=== PATIENT | male | born 1945 | race Caucasian/White ===

== ENCOUNTER → 2016-08-31 | Outpatient (CLI) | payer OTHER ==
[~2016-08-31] MED LIST: ALEV220T26 PO; ASPI1TAB PO; LOSA50TA20 PO; OSTETAB7 PO; VITA400D3 PO
[2016-08-31 11:39] LABS: MEAN CORPUSCULAR HEMOGLOBIN 31.6 pg (27.0-33.0); MEAN CORPUSCULAR HGB CONC 33.3 g/dl (32.0-36.5); MEAN CORPUSCULAR VOLUME 94.8 fl (80.0-96.0); RED CELL DISTRIBUTION WIDTH 12.7 % (11.5-14.5); WHITE BLOOD COUNT 3.9 K/mm3 (4.0-10.0)
[2016-08-31 11:44] LABS: INR 1.03
[2016-08-31 12:14] LABS: ALBUMIN 3.7 GM/DL (3.2-5.2); ALBUMIN/GLOBULIN RATIO 1.23 (1.00-1.93); ALKALINE PHOSPHATASE 84 U/L (45-117); ALT/SGPT 21 U/L (12-78); ANION GAP 6 MEQ/L (8-16); AST/SGOT 28 U/L (15-37); BILIRUBIN,TOTAL 0.4 MG/DL (0.2-1.0); BLOOD UREA NITROGEN 18 MG/DL (7-18); CALCIUM LEVEL 8.6 MG/DL (8.8-10.2); CARBON DIOXIDE LEVEL 31 MEQ/L (21-32); CHLORIDE LEVEL 104 MEQ/L (98-107); CREATININE FOR GFR 1.02 MG/DL (0.70-1.30); GLOMERULAR FILTRATION RATE > 60.0 (>42); GLUCOSE, FASTING 99 MG/DL (83-110); POTASSIUM SERUM 4.3 MEQ/L (3.5-5.1); SODIUM LEVEL 141 MEQ/L (136-145); TOTAL PROTEIN 6.7 GM/DL (6.4-8.2)
--- NOTE | 2016-08-31 13:37 | ECGEPIP ---
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
--- NOTE | 2016-09-01 03:10 | REP ---
Clinical: Preoperative assessment. Technique: PA and lateral. Comparison: None. Findings: Mediastinum and cardiac silhouette are within normal limits. Lung stevens demonstrate chronic-appearing changes without focal consolidation, effusion, or pneumothorax. Skeletal structures intact and normal for age. Impression: No obvious acute cardiopulmonary process. Signed by Jerel Walter MD 09/01/2016 03:01 A
== END ==
LOC: M ADMPAT 10:16
PROVIDERS: ATTEND Orthopaedic Surgery
DX: Z01.818 Encounter for other preprocedural examination (principal); M17.12 Unilateral primary osteoarthritis, left knee; Z79.899 Other long term (current) drug therapy; Z79.01 Long term (current) use of anticoagulants

== ENCOUNTER 2016-09-14 05:37 | Inpatient (IN) | payer OTHER ==
[2016-08-31 11:13] VITALS: BP 126/70
--- NOTE | 2016-09-10 13:36 | HPE ---
DATE OF ADMISSION: 09/14/2016 HISTORY OF PRESENT ILLNESS: This is a pleasant male with continuing symptomatic left knee osteoarthritis related to work injury dating back to 12/17/2011. He has consented for left total knee arthroplasty per Dr. Cj Rob. Medical optimization per Rama Reeder. X-rays are consistent with advanced osteoarthritis. ALLERGIES: None known to medications. CURRENT MEDICATIONS: List includes: - losartan 50 mg once a day - Hubert low dose 81 mg once daily, [id number] - vitamin D liquid concentrate ten drops weekly - Naproxen sodium 220 mg [id number]-[id number] as needed - Osteo-BiFlex joint health [id number]-igl-nmbqptc once daily He has already stopped taking Hubert and naproxen as coached. Medical problem list includes symptomatic left knee osteoarthritis and hypertension. PAST SURGICAL HISTORY: Hernia times two. FAMILY HISTORY: Positive for arthritis, cancer. SOCIAL HISTORY: He has never smoked. Rare ethanol intake. Denies illicit drugs. REVIEW OF SYSTEMS: Denies chest pain, shortness of breath, dyspnea exertion, fever, chills, malaise , upper respiratory or urinary tract symptoms. PHYSICAL EXAMINATION: Height is 65 inches, weight 148, temperature 98.5, blood pressure 130/80, pulse 64, respiration 11. He is a pleasant, well-developed, well-nourished male in no acute distress. Alert and oriented times three. Mood and affect are appropriate. He is ambulating with favoring of his right lower extremity, antalgia about the left. Left knee varus. Osteoarthritic line with positive medial joint line tenderness. Crepitance is noted about the patellofemoral joint. PFT is otherwise concentric and dynamic. He is stable in the collateral ligaments, patellar and quad tendons without palpable defects. Can do a straight leg raise. There is no popliteal fossa mass or pain. No evidence of deep vein thrombosis (DVT) or compartment syndrome. Bowel sounds times four, soft, nontender. Chest rises symmetrically. Lungs clear to auscultation. Neck is supple. Negative jugular venous distention (JVD) or bruits. Normocephalic. Labs were reviewed and within normal limits. Chest x-ray result read by Dr. Walter showed no obvious acute cardiopulmonary process, date of exam 09/10/2016 via [facility]. I do not have access to EKG today. IMPRESSION: 1. Symptomatic left knee osteoarthritis. 2. The patient has consented for a left total knee arthroplasty per Dr. Cj Rob. 3. Medical optimization per Dr. Rama Reeder. 4. On-call operating room, 1 gram of IV Kefzol in OR. 5. Sequential compression device (SCD) in OR. MTDD
[~2016-09-14] VITALS: Ht 170.2 cm; Wt 71.2 kg
[2016-09-14] MEDS ORDERED: ACETAMINOPHEN 500 MG TAB PO ONE (05:45)
[2016-09-14] MEDS ORDERED: LR 1,000 ML IV SCH ×2 (05:45→11:15)
[2016-09-14] MEDS ORDERED: COUM1TAB17 PO (06:33)
[2016-09-14] MEDS ORDERED: fentaNYL 100 MCG/2 ML INJECTION (J3010) As Ordered ONE ×3 (06:52→07:12)
[2016-09-14] MEDS ORDERED: MIDAZOLAM INJ 2 MG/2 ML VIAL (J2250) As Ordered ONE ×2 (06:52→06:57)
[2016-09-14] MEDS ORDERED: LIDOCAINE 2% INJ 100 MG/5 ML SDV (FOR ANES.) As Ordered ONE (06:57)
[2016-09-14] MEDS ORDERED: PROPOFOL 200 MG/20 ML VIAL As Ordered ONE (06:57)
[2016-09-14] MEDS ORDERED: ROPIvacaine 0.5% 30 ML INJECTION (J2795) As Ordered ONE (07:11)
[2016-09-14] MEDS ORDERED: TRANEXAMIC ACID 100 MG/ML 10ML VIAL As Ordered ONE (07:12)
[2016-09-14] MEDS ORDERED: BUPIVACAINE HCL 0.5% 10 ML VIAL As Ordered ONE (07:12)
[2016-09-14] MEDS ORDERED: ceFAZolin 1GM INJ (J0690) As Ordered ONE (07:12)
[2016-09-14] MEDS ORDERED: EPINEPHrine INJ 1 MG/ML 1ML VIAL/AMP As Ordered ONE (07:13)
[2016-09-14] MEDS ORDERED: fentaNYL 100 MCG/2 ML INJECTION (J3010) IV ONE (07:45)
[2016-09-14] MEDS ORDERED: MIDAZOLAM INJ 5 MG/ML VIAL (J2250) IV ONE (07:45)
[2016-09-14] MEDS ORDERED: EPINEPHrine INJ 1 MG/ML 1ML VIAL/AMP XX ONE (08:11)
[2016-09-14] MEDS ORDERED: ROPIvacaine 0.5% 30 ML INJECTION (J2795) XX ONE (08:11)
[2016-09-14] MEDS ORDERED: ceFAZolin 1GM INJ (J0690) IR ONE (08:11)
[2016-09-14] MEDS ORDERED: BUPIVACAINE HCL 0.5% 10 ML VIAL XX ONE (08:11)
[2016-09-14] MEDS ORDERED: fentaNYL 100 MCG/2 ML INJECTION (J3010) XX ONE (08:11)
[2016-09-14] MEDS ORDERED: TRANEXAMIC ACID 100 MG/ML 10ML VIAL XX ONE (08:11)
[2016-09-14] MEDS ORDERED: ONDANSETRON 4MG/2ML VIAL (J2405) As Ordered ONE (09:15)
[2016-09-14] MEDS ORDERED: MORPHINE PCA 1MG/ML 100ML CADD As Ordered ONE (10:07)
--- NOTE | 2016-09-14 10:24 | CR ---
DATE OF CONSULTATION: 09/14/2016 PRIMARY CARE PROVIDER: Rama Reeder DO ORTHOPEDIC SURGEON: Kassi Rob MD REFERRING PHYSICIAN: Kassi Rob MD REASON FOR CONSULTATION: Medical management. HISTORY OF PRESENT ILLNESS: This patient is a 70-year-old male with a past medical history significant for osteoarthritis, mitral valve prolapse with regurgitation, and hypertension, presented to [facility] on 09/14/2016, for left total knee replacement by Dr. Rob. Patient's left knee has been having progressively worsening symptoms due to chronic osteoarthritis. Patient tolerated the procedure well, no complications, and hospitalist team was called for admission. ALLERGIES: No known drug allergies. PAST MEDICAL HISTORY: 1. History of degenerative disc disease. 2. History of prostatitis. 3. Mitral valve prolapse with regurgitation. Echocardiogram done in 2014 shows ejection fraction of 65-70%. 4. Hypertension. PAST SURGICAL HISTORY: 1. Hernia repair. 2. Colonoscopy in 2016, normal results. HOME MEDICATIONS: - aspirin 81 mg by mouth daily - losartan 50 mg by mouth daily - naproxen 220 mg by mouth daily as needed SOCIAL HISTORY: Denies smoking. Drinks wine a few times weekly. No recreational drug use. REVIEW OF SYSTEMS: GENERAL: No fever, no chills. HEENT: No vision changes, no auditory changes. CARDIOVASCULAR: No chest pain, no palpitations. RESPIRATORY: No shortness of breath, no cough, denies sputum production. GASTROINTESTINAL (GI): No nausea, no vomiting, no abdominal pain. MUSCULOSKELETAL: History of osteoarthritis (OA) status post left total knee replacement. NEUROLOGICAL: No numbness, no tingling. OBJECTIVE: VITAL SIGNS: Blood pressure 130/64, pulse oximetry 100%, respiration rate 16, heart rate 72. LABORATORY DATA: From 08/31/2016: Showed WBC 3.9, hemoglobin 13.7, hematocrit 41.3, platelet count 195. Sodium 141, potassium 4.3, chloride 104, carbon dioxide 31, BUN 18, creatinine 1.02, GFR greater than 60, fasting glucose 99, calcium 8.6, total bilirubin 0.4, AST 28, ALT 21, alkaline phosphatase 84, total protein 6.7, albumin 3.7. PT 13.6, INR 1.03. Urinalysis is negative. ASSESSMENT AND PLAN: 1. Hypertension. Currently patient just had a left total knee replacement by Dr. Rob on 09/14/2016. Patient's current blood pressure is 130/64. Continue to monitor. Will hold the losartan for now. May restart it at an appropriate time. 2. Osteoarthritis status post left total knee replacement. Will refer the pain medication, activity level, diet, and anticoagulation per primary surgical team. 3. History of mitral valve prolapse. Continue to monitor. 4. Deep venous thrombosis (DVT) prophylaxis. Patient has thromboembolism deterrents (TEDs) and sequential compression device. Will defer the anticoagulation to the primary team.
[2016-09-14] MEDS: LR 1,000 ML IV SCH ×2 (10:45→23:15)
[2016-09-14] MEDS ORDERED: EPIDURAL/PCA KEYS XX PRN (11:00)
[2016-09-14] MEDS ORDERED: PATIENT IS CURRENTLY ON AN ON-Q PAIN BUSTER PAIN RELIEF SYSTEM XX SCH (11:00)
[2016-09-14] MEDS ORDERED: ONDANSETRON 4MG/2ML VIAL (J2405) IV PRN ×2 (11:00→11:15)
[2016-09-14] MEDS ORDERED: MORPHINE PCA 1MG/ML 100ML CADD IV PRN (11:00)
[2016-09-14] MEDS ORDERED: NALBUPHINE HCL 10 MG/ML AMP (J2300) IV PRN (11:00)
[2016-09-14] MEDS ORDERED: diphenhydrAMINE INJ 50MG/ML VIAL (J1200) IV PRN (11:00)
[2016-09-14] MEDS ORDERED: FLEET ENEMA PR PRN (11:00)
[2016-09-14] MEDS ORDERED: NALOXONE INJ 0.4 MG/1 ML VIAL (J2310) IV PRN (11:00)
[2016-09-14] MEDS ORDERED: HYDROmorphone HCL 1 MG/ML SYRINGE (J1170) IV PRN (11:15)
[2016-09-14] MEDS ORDERED: fentaNYL 100 MCG/2 ML INJECTION (J3010) IV PRN (11:15)
[2016-09-14] MEDS ORDERED: PERCOCET 5MG/325MG TAB PO PRN (11:15)
[2016-09-14 12:00] VITALS: BP 136/69
[2016-09-14 12:30] VITALS: BP 134/72
[2016-09-14 13:30] VITALS: BP 147/88
[2016-09-14 14:00] VITALS: BP 139/66
[2016-09-14 15:30] VITALS: BP 114/67
[2016-09-14] MEDS: LOSARTAN 50 MG TAB PO SCH (16:15)
[2016-09-14] MEDS ORDERED: WARFARIN SOD 5 MG TAB PO SCH (17:00)
[2016-09-14] MEDS: ACETAMINOPHEN TAB 650MG DOSE (2X325MG) PO PRN (20:34)
[2016-09-15] MEDS: ACETAMINOPHEN TAB 650MG DOSE (2X325MG) PO PRN (00:43)
[2016-09-15] MEDS ORDERED: diphenhydrAMINE 25 MG CAP PO ONE ×2 (01:00→22:45)
[2016-09-15] MEDS ORDERED: PERCOCET 5MG/325MG TAB PO PRN (06:45)
[2016-09-15] MEDS ORDERED: ONDANSETRON 4 MG TAB (S0181) PO PRN (06:45)
[2016-09-15 07:05] LABS: MEAN CORPUSCULAR HEMOGLOBIN 31.9 pg (27.0-33.0); MEAN CORPUSCULAR HGB CONC 33.7 g/dl (32.0-36.5); MEAN CORPUSCULAR VOLUME 94.5 fl (80.0-96.0); RED CELL DISTRIBUTION WIDTH 13.1 % (11.5-14.5); WHITE BLOOD COUNT 10.4 K/mm3 (4.0-10.0)
[2016-09-15 07:06] LABS: INR 1.18
[2016-09-15 07:28] LABS: ANION GAP 8 MEQ/L (8-16); BLOOD UREA NITROGEN 26 MG/DL (7-18); CALCIUM LEVEL 8.3 MG/DL (8.8-10.2); CARBON DIOXIDE LEVEL 29 MEQ/L (21-32); CHLORIDE LEVEL 101 MEQ/L (98-107); CREATININE FOR GFR 0.85 MG/DL (0.70-1.30); GLOMERULAR FILTRATION RATE > 60.0 (>42); GLUCOSE, FASTING 121 MG/DL (83-110); POTASSIUM SERUM 4.2 MEQ/L (3.5-5.1); SODIUM LEVEL 138 MEQ/L (136-145)
[2016-09-15 08:00] VITALS: BP 110/52
[2016-09-15] MEDS: MOM 30ML SUSPENSION UDC PO SCH (08:34)
[2016-09-15] MEDS: MIRALAX *UNIT DOSE* 17GM PACKET PO SCH ×2 (08:34→08:39)
[2016-09-15] MEDS: LOSARTAN 50 MG TAB PO SCH (08:35)
[2016-09-15] MEDS: SENOKOT S TAB PO SCH ×2 (08:36→20:23)
[2016-09-15] MEDS: PERCOCET 5MG/325MG TAB PO PRN ×4 (08:36→22:27)
[2016-09-15] MEDS ORDERED: ROPIvacaine 0.5% 30 ML INJECTION (J2795) ONE (09:53)
[2016-09-15] MEDS ORDERED: dexameTHASONE 10 MG/1 ML VIAL PRES.FREE (J1100) ONE (09:53)
[2016-09-15] MEDS ORDERED: LIDOCAINE 1% MDV 20ML VIAL ONE (09:53)
--- NOTE | 2016-09-15 09:59 | RO ---
DATE OF PROCEDURE: 09/14/2016 PREPROCEDURE DIAGNOSIS: Left knee degenerative varus arthritis. POSTPROCEDURE DIAGNOSIS: Left knee degenerative varus arthritis. PROCEDURE: Left total knee arthroplasty using a size 3 cruciate retaining PFC femoral component, size 3 tibial tray with a 12.5 rotating platform polyethylene insert and a 35 mm button. All components were cemented. Prosthesis made by [employer]. It was a PFC knee. SURGEON: Dr. Kassi Rob CLAIMS PROCESSOR: Mr. Justin Stanley. ANESTHESIA: Spinal with left femoral nerve block. COMPLICATIONS: None. DESCRIPTION OF PROCEDURE: After antibiotics were given intravenously preoperatively and successful spinal anesthetic and left femoral nerve block anesthetic had been established, a tourniquet was placed on the left upper thigh and not inflated. Then his left lower extremity was prepped and draped in the usual sterile fashion and then elevated. After appropriate time out, tourniquet was inflated, longitudinal incision was made for a medial parapatellar approach to the knee. Bovie cautery was used to coagulate crossing vessels. A medial parapatellar arthrotomy was performed. Subperiosteal dissection around the proximal and medial portion of the tibia was performed, then we everted the patella and flexed the knee. Drill was placed down the center of the femoral canal, followed by the distal femoral cutting jig set at 5 degree valgus, 10 mm resection level for a left knee. It was secured in position, the distal femoral cut performed. AP sizing jig measured between a 3 and a 4, about half way, thus I elected to go with a size 3 because that was consistent with our preoperative templating. The 3-degree external rotation jig was made to insert the pins and then the 4-in-1 block was applied. The anterior, posterior, chamfer cuts performed, taking great care to protect the surrounding soft tissues. We then exposed the proximal tibia, used the extramedullary alignment jig to be sure that we were parallel to the mechanical axis, and we referenced off the medial tibial condyle at 4 mm resection level. We drilled the pins to hold the proximal tibial guide, and then secondary check with the extramedullary lynda confirmed we were parallel to the mechanical axis. Proximal tibial osteotomy was then performed. We then placed the lamina cut off saw tender metal laterally and performed a completion medial meniscectomy and debridement of posteromedial loose bodies. There were no significant posteromedial osteophytes noted. The lamina cut off saw tender metal was then placed medially and we performed a completion lateral meniscectomy. The sizing blocks were then placed and a 12.5 fit very nicely with good stability of varus, valgus, AP stress testing with good balancing between flexion and extension gaps noted. We then exposed the proximal tibia, sized for a tibial tray size 3, which was pinned into position, followed by the reamer and the broach, then the trial polyethylene was applied, followed by the trial femoral component, brought the knee into extension, again very stable to varus, valgus and AP stress testing. We everted the patella, performed a patellar osteotomy, sized for a 35 button. The lug holes were drilled. The patellar prosthesis trial was placed and patellofemoral tracking was anatomic. We drilled the lug holes for the femur. My assistant professor of surgery, Mr. Justin Stanley, mixed the cement at the back table at this point while I removed all of the trial components and prepared the bony surfaces for cementing with a copious amount of pulsatile lavage irrigant solution. Mr. Stanley was also critical to the success of the procedure by helping to manipulate the knee, helping to provide appropriate soft tissue retraction so I could perform the operating smoothly and efficiently. We then cemented the tibial tray, removed excess cement, placed the polyethylene, then we cemented the femoral component, removed excess cement, and brought the knee into extension, and then cemented the patellar button and clamped it until the cement had hardened. Excess cement was removed as well. While the cement was hardening, we copiously pulsatile lavage irrigated out the knee joint and once that had been completed, we used the TXA solution to help minimize bleeding. When the cement had hardened, we began closing the arthrotomy. Two #1-0 PDS sutures were placed in the apex of the quad closure, then one at the mediopatellar border to set the alignment, and then a running #1 Stratafix was used to close the capsule. Then the tourniquet was released. A PainBuster catheter was then placed from a superolateral puncture through the skin and into the knee, and then we copiously irrigated the wound again. Closed the deep subdermal tissues with interrupted #2-0 PDS sutures, skin was closed with tani, covered by Adaptic dry sterile bulky dressing. Andujar catheter was then removed. He was then transferred to the recovery room in stable condition. There were no intraoperative complications.
--- NOTE | 2016-09-15 11:58 | REP ---
AP AND LATERAL LEFT KNEE, TWO VIEWS: HISTORY: Knee replacement. The patient is status post left total knee replacement. There is no acute fracture or dislocation. Subcutaneous air and surgical tani are present in the overlying soft tissue. IMPRESSION: The patient is status post left total knee replacement. There is anatomic alignment. Signed by Tolu Velez MD 09/15/2016 12:04 P
[2016-09-15 12:00] VITALS: BP 131/63
[2016-09-15] MEDS ORDERED: SENN1TAB2 PO (15:35)
[2016-09-15 16:00] VITALS: BP 137/77
[2016-09-15] MEDS ORDERED: WARFARIN SOD 5 MG TAB PO ONE (17:00)
--- NOTE | 2016-09-15 17:32 | IPN ---
DATE: 09/15/2016 Patient is seen and examined. No acute events overnight. Denies any chest pain, pressure, or discomfort. Denies any shortness of breath, fever, or chills. Surgical pain with intolerable limits. Started to ambulate as of right now. VITAL SIGNS: Temperature 98.5, pulse 86, respirations 20, blood pressure 137/77, pulse oximetry 97% on room air. LABORATORY DATA: WBC 10.4, hemoglobin and hematocrit 11.5/34, platelets 154. Chemistry: Sodium 138, potassium 4.2, chloride 101, bicarbonate 29, BUN 26, creatinine 0.85, INR 1.18. PHYSICAL EXAMINATION: GENERAL: Patient alert, oriented times three, in no acute distress. HEENT: Normocephalic, atraumatic. PULMONARY: Bilaterally clear to auscultation. CARDIAC: Regular rate and rhythm, normal S1, S2. Systolic 2/6 murmur detected. ABDOMEN: Soft, nontender, nondistended. EXTREMITIES: Dressing clean, dry, and intact. Dorsalis pedis (DP) and posterior tibialis (PT) pulses 2+. Able to move bilateral lower extremities. ASSESSMENT AND PLAN: This is a 70-year-old male patient with underlying medical history of osteoarthritis, mitral valve prolapse with regurgitation, hypertension, prostatitis, degenerative joint disease, admitted under orthopedic service for osteoarthritis with left total knee replacement. 1. Osteoarthritis status post left total knee replacement. Pain management, physical activity, diet, anticoagulation for deep venous thrombosis (DVT) prophylaxis, physical therapy, and pain regimen as per orthopedics. Continue stool softeners, physical therapy. Patient on Coumadin for deep venous thrombosis (DVT) prophylaxis. 2. Hypertension. Continue blood pressure medications, will monitor, adjust as needed. 3. History of mitral valve prolapse. Patient was on aspirin. Given patient is on Coumadin right now will discontinue aspirin until patient is off Coumadin. 4. Spinal stenosis. Physical therapy. Pain regimen as prescribed by orthopedics. 5. Deep venous thrombosis (DVT) prophylaxis. Patient on Coumadin as per orthopedic team. DISPOSITION: As per orthopedic team. Likely patient will be discharged tomorrow.
[2016-09-15] MEDS: MORPHINE 30 MG SA TAB PO SCH (20:22)
[2016-09-15 22:00] VITALS: BP 141/67
[2016-09-16] MEDS: PERCOCET 5MG/325MG TAB PO PRN ×4 (03:18→17:22)
[2016-09-16 06:00] VITALS: BP 138/67
[2016-09-16 07:09] LABS: MEAN CORPUSCULAR HEMOGLOBIN 32.7 pg (27.0-33.0); MEAN CORPUSCULAR HGB CONC 34.4 g/dl (32.0-36.5); MEAN CORPUSCULAR VOLUME 94.9 fl (80.0-96.0); RED CELL DISTRIBUTION WIDTH 13.2 % (11.5-14.5); WHITE BLOOD COUNT 7.2 K/mm3 (4.0-10.0)
[2016-09-16 07:16] LABS: INR 1.36
[2016-09-16 07:23] LABS: ANION GAP 6 MEQ/L (8-16); BLOOD UREA NITROGEN 20 MG/DL (7-18); CALCIUM LEVEL 8.2 MG/DL (8.8-10.2); CARBON DIOXIDE LEVEL 30 MEQ/L (21-32); CHLORIDE LEVEL 100 MEQ/L (98-107); GLOMERULAR FILTRATION RATE > 60.0 (>42); GLUCOSE, FASTING 90 MG/DL (83-110); POTASSIUM SERUM 3.9 MEQ/L (3.5-5.1); SODIUM LEVEL 136 MEQ/L (136-145)
[2016-09-16] MEDS ORDERED: COUM2.5T11 PO (07:53)
[2016-09-16] MEDS ORDERED: PERC5TAB6 PO (07:53)
[2016-09-16] MEDS ORDERED: MORP30TASA PO (07:53)
[2016-09-16] MEDS: MIRALAX *UNIT DOSE* 17GM PACKET PO SCH (09:00)
[2016-09-16] MEDS: LOSARTAN 50 MG TAB PO SCH (09:18)
[2016-09-16] MEDS: SENOKOT S TAB PO SCH ×2 (09:18→21:42)
[2016-09-16] MEDS: MOM 30ML SUSPENSION UDC PO SCH (09:18)
[2016-09-16] MEDS: MORPHINE 30 MG SA TAB PO SCH ×2 (09:19→21:43)
[2016-09-16 14:00] VITALS: BP 116/55
--- NOTE | 2016-09-16 14:49 | IPNPDOC ---
Text Note Date of Service The patient was seen on 09/16/16. NOTE Subjective: Patient states he feels well. Left knee is tender postop. Objective: Vitals: (see below) General: No acute distress, laying comfortably in bed. HEENT: Moist mucous membranes. Neck: No JVD or lymphadenopathy Cardiac: RRR, No murmurs Pulm: Clear to auscultation b/l. No wheezing, rhonchi Abd: NT/ND + BS Ext: Left knee tender to palpation. Distal pulses intact. Minimal swelling. No bleeding. Labs (see below) Images: Assessment/Plan 1. Severe obstructive arthritis status post left total knee replacement. DVT prophylaxis and pain management per orthopedics. 2. Hypertension controlled continue home meds. 3. History of mitral prophylaxis - aspirin has been held while patient was on Coumadin for his DVT prophylaxis.. 4. Spinal stenosis continue physical therapy DVT prophy: Per orthopedics VS,Fishbone, I+O VS, Fishbone, I+O Laboratory Tests 09/16/16 06:40 Calcium Level 8.2 L, Red Blood Count 3.60 L, Mean Corpuscular Volume 94.9, Mean Corpuscular Hemoglobin 32.7, Mean Corpuscular Hemoglobin Concent 34.4, Red Cell Distribution Width 13.2 Vital Signs Date Time Temp Pulse Resp B/P Pulse Ox O2 Delivery O2 Flow Rate FiO2 09/16/16 13:30 18 09/16/16 09:18 138/67 09/16/16 07:20 Room Air 09/16/16 06:00 98.8 69 96 09/14/16 20:00 2.0 I&O- Last 24 Hours up to 6 AM 09/16/16 05:59 Intake Total 1660 ml Output Total 1000 ml Balance 660 ml THUY CURRIE MD Sep 16, 2016 14:49
[2016-09-16] MEDS ORDERED: WARFARIN SOD 7.5 MG TAB PO ONE (17:00)
[2016-09-16 22:00] VITALS: BP 132/65
[2016-09-17 06:00] VITALS: BP 64/129
[2016-09-17 06:51] LABS: MEAN CORPUSCULAR HEMOGLOBIN 31.7 pg (27.0-33.0); MEAN CORPUSCULAR HGB CONC 33.2 g/dl (32.0-36.5); MEAN CORPUSCULAR VOLUME 95.6 fl (80.0-96.0); RED CELL DISTRIBUTION WIDTH 13.5 % (11.5-14.5); WHITE BLOOD COUNT 6.4 K/mm3 (4.0-10.0)
[2016-09-17 06:53] LABS: INR 1.5
[2016-09-17 06:59] LABS: ANION GAP 3 MEQ/L (8-16); BLOOD UREA NITROGEN 14 MG/DL (7-18); CALCIUM LEVEL 8.1 MG/DL (8.8-10.2); CARBON DIOXIDE LEVEL 34 MEQ/L (21-32); CHLORIDE LEVEL 100 MEQ/L (98-107); CREATININE FOR GFR 0.87 MG/DL (0.70-1.30); GLOMERULAR FILTRATION RATE > 60.0 (>42); GLUCOSE, FASTING 87 MG/DL (83-110); POTASSIUM SERUM 4.1 MEQ/L (3.5-5.1); SODIUM LEVEL 137 MEQ/L (136-145)
[2016-09-17] MEDS ORDERED: NS 1,000 ML IV ONE (08:00)
[2016-09-17] MEDS ORDERED: MAGNESIUM CITRATE 300 ML BTL PO ONE ×2 (08:30→10:00)
[2016-09-17 08:45] VITALS: BP 129/64
[2016-09-17] MEDS: LOSARTAN 50 MG TAB PO SCH (08:45)
[2016-09-17] MEDS: MORPHINE 30 MG SA TAB PO SCH (08:45)
[2016-09-17] MEDS: SENOKOT S TAB PO SCH (08:45)
[2016-09-17] MEDS: MOM 30ML SUSPENSION UDC PO SCH (08:46)
[2016-09-17] MEDS: MIRALAX *UNIT DOSE* 17GM PACKET PO SCH (08:46)
[2016-09-17 14:00] VITALS: BP 133/63
--- NOTE | 2016-09-17 15:40 | IPNPDOC ---
Text Note Date of Service The patient was seen on 09/17/16. NOTE Subjective: Patient states he feels well. Left knee is tender postop, states there is some swelling. Objective: Vitals: (see below) General: No acute distress, laying comfortably in bed. HEENT: Moist mucous membranes. Neck: No JVD or lymphadenopathy Cardiac: RRR, No murmurs Pulm: Clear to auscultation b/l. No wheezing, rhonchi Abd: NT/ND + BS Ext: Left knee tender to palpation. Distal pulses intact. 1+ pitting edema RLE. No bleeding. Labs (see below) Images: Assessment/Plan 1. Severe obstructive arthritis status post left total knee replacement. DVT prophylaxis and pain management per orthopedics. 2. Hypertension controlled continue home meds. 3. History of mitral prophylaxis - aspirin has been held while patient was on Coumadin for his DVT prophylaxis.. 4. Spinal stenosis continue physical therapy DVT prophy: Per orthopedics Pt being d/c home today. Will need to be placed back on ASA when he completes Coumadin. VS,Fishbone, I+O VS, Fishbone, I+O Laboratory Tests 09/17/16 06:29 Calcium Level 8.1 L, Red Blood Count 3.75 L, Mean Corpuscular Volume 95.6, Mean Corpuscular Hemoglobin 31.7, Mean Corpuscular Hemoglobin Concent 33.2, Red Cell Distribution Width 13.5 Vital Signs Date Time Temp Pulse Resp B/P Pulse Ox O2 Delivery O2 Flow Rate FiO2 09/17/16 14:00 98.8 91 16 133/63 95 Room Air 09/14/16 20:00 2.0 I&O- Last 24 Hours up to 6 AM 09/17/16 06:00 Intake Total 1440 ml Output Total 200 ml Balance 1240 ml THUY CURRIE MD Sep 17, 2016 15:40
== END 2016-09-17 14:50 | disposition home or self-care (01) | DRG 470 ==
LOC: M OR 05:37 → EDUNIT# 07:30 → M MS5PR 12:00
PROVIDERS: ADMIT Orthopaedic Surgery; ATTEND Orthopaedic Surgery
PROC: 0SRD0J9 Replacement of Left Knee Joint with Synthetic Substitute, Cemented, Open Approach (ICD-10-PCS; principal; 2016-09-14 07:30)
DX: M17.12 Unilateral primary osteoarthritis, left knee (principal); I10 Essential (primary) hypertension; I34.1 Nonrheumatic mitral (valve) prolapse; M48.00 Spinal stenosis, site unspecified; Z80.9 Family history of malignant neoplasm, unspecified; Z82.61 Family history of arthritis; Z79.82 Long term (current) use of aspirin; Z79.899 Other long term (current) drug therapy

== ENCOUNTER → 2016-09-21 | Outpatient (REF) | payer OTHER ==
[~2016-09-21] MED LIST changes: +COUM1TAB17 PO; +COUM2.5T11 PO; +MORP30TASA PO; +PERC5TAB6 PO; +SENN1TAB2 PO
[2016-09-21 12:35] LABS: INR 2.11
== END ==
LOC: M SHH 12:17
PROVIDERS: ATTEND Nurse Practitioner Family
DX: Z79.01 Long term (current) use of anticoagulants (principal)

== ENCOUNTER → 2016-09-24 | Outpatient (REF) | payer OTHER ==
[2016-09-24 15:24] LABS: INR 2.49
== END ==
LOC: M SHH 14:57
PROVIDERS: ATTEND Nurse Practitioner Family
DX: Z79.01 Long term (current) use of anticoagulants (principal)

== ENCOUNTER → 2016-09-28 | Outpatient (REF) | payer OTHER ==
[2016-09-28 14:01] LABS: INR 1.31
== END ==
LOC: M SHH 13:40
PROVIDERS: ATTEND Nurse Practitioner Family
DX: Z79.01 Long term (current) use of anticoagulants (principal)

== ENCOUNTER → 2018-08-05 | Outpatient (REF) | payer OTHER ==
[~2018-08-05] MED LIST changes: -COUM2.5T11 PO; +COUM2.5T17 PO; -LOSA50TA20 PO; +LOSA50TA88 PO; +PERC5TAB12 PO; -PERC5TAB6 PO; +VITA400D PO; -VITA400D3 PO
[2018-08-05 16:43] LABS: BASO % 0.8 % (0.0-1.0); EOS # 0.1 10^3/uL (0.0-0.50); EOS % 2.7 % (0.0-3.0); HEMATOCRIT 40.8 % (42.0-52.0); HEMOGLOBIN 13.7 g/dl (13.5-17.5); LYMPH # 1.2 10^3/uL (1.5-4.5); LYMPH % 23.7 % (24.0-44.0); MEAN CORPUSCULAR HEMOGLOBIN 31.6 pg (27.0-33.0); MEAN CORPUSCULAR HGB CONC 33.6 g/dl (32.0-36.5); MEAN CORPUSCULAR VOLUME 94.2 fl (80.0-96.0); MONO # 0.5 10^3/uL (0.0-0.8); MONO % 10.2 % (0.0-5.0); NEUTROPHILS # 3.1 10^3/uL (1.8-7.7); NEUTROPHILS % 62.2 % (36.0-66.0); PLATELET COUNT, AUTOMATED 194 10^3/uL (150-450); RED BLOOD COUNT 4.33 10^6/uL (4.30-6.10); WHITE BLOOD COUNT 4.9 10^3/uL (4.0-10.0)
[2018-08-05 16:49] LABS: ALBUMIN 3.5 GM/DL (3.2-5.2); ALT/SGPT 17 U/L (12-78); BILIRUBIN,TOTAL 0.5 MG/DL (0.2-1.0); BLOOD UREA NITROGEN 18 MG/DL (7-18); CALCIUM LEVEL 8.6 MG/DL (8.8-10.2); CARBON DIOXIDE LEVEL 26 MEQ/L (21-32); CHLORIDE LEVEL 104 MEQ/L (98-107); CHOLESTEROL LEVEL 209 MG/DL (<200); CHOLESTEROL RISK RATIO 4.019 (<5); CREATININE FOR GFR 0.92 MG/DL (0.70-1.30); GLOMERULAR FILTRATION RATE > 60.0 (>42); GLUCOSE, FASTING 90 MG/DL (70-100); HDL CHOLESTEROL 52 MG/DL (>40); LDL CHOLESTEROL 133 MG/DL (<100); NON-HDL-C 157 MG/DL; POTASSIUM SERUM 4.2 MEQ/L (3.5-5.1); SODIUM LEVEL 139 MEQ/L (136-145); TOTAL PROTEIN 6.8 GM/DL (6.4-8.2); TRIGLYCERIDES LEVEL 119 MG/DL (<150)
== END ==
LOC: M LAB REF 16:24
PROVIDERS: ATTEND Family Medicine
DX: I10 Essential (primary) hypertension (principal); I34.0 Nonrheumatic mitral (valve) insufficiency; N40.0 Benign prostatic hyperplasia without lower urinary tract symptoms; Z00.00 Encounter for general adult medical examination without abnormal findings; E78.5 Hyperlipidemia, unspecified

== ENCOUNTER → 2019-05-15 | Outpatient (CLI) | payer MEDICARE ==
[~2019-05-15] MED LIST changes: -ASPI1TAB PO; +ASPI81TA26 PO; +ASPI81TA85 PO; +OSTETAB3 PO; +SENN-53 PO; -SENN1TAB2 PO
[2019-05-15 09:06] LABS: HEMATOCRIT 42.7 % (42.0-52.0); HEMOGLOBIN 14.2 g/dl (13.5-17.5); MEAN CORPUSCULAR HEMOGLOBIN 32.2 pg (27.0-33.0); MEAN CORPUSCULAR HGB CONC 33.3 g/dl (32.0-36.5); MEAN CORPUSCULAR VOLUME 96.8 fl (80.0-96.0); PLATELET COUNT, AUTOMATED 184 10^3/uL (150-450); RED BLOOD COUNT 4.41 10^6/uL (4.30-6.10); WHITE BLOOD COUNT 4.5 10^3/uL (4.0-10.0)
[2019-05-15 09:12] LABS: INR 1.1; PROTHROMBIN TIME 13.9 SECONDS (11.8-14.0)
[2019-05-15 09:24] LABS: ALBUMIN 3.4 GM/DL (3.2-5.2); ALT/SGPT 22 U/L (12-78); BILIRUBIN,TOTAL 0.5 MG/DL (0.2-1.0); BLOOD UREA NITROGEN 18 MG/DL (7-18); CARBON DIOXIDE LEVEL 30 MEQ/L (21-32); CHLORIDE LEVEL 106 MEQ/L (98-107); CREATININE FOR GFR 1.01 MG/DL (0.70-1.30); GLOMERULAR FILTRATION RATE > 60.0 (>42); GLUCOSE, FASTING 106 MG/DL (70-100); POTASSIUM SERUM 4.1 MEQ/L (3.5-5.1); SODIUM LEVEL 140 MEQ/L (136-145); TOTAL PROTEIN 6.9 GM/DL (6.4-8.2)
[2019-05-15 09:54] LABS: ERYTHROCYTE SEDIMENTATION RATE 10 mm/hr (0-20)
--- NOTE | 2019-05-15 10:32 | REP ---
Two-view chest: 05/15/2019. Indication: Preoperative assessment. Comparison: 08/31/2016. Findings: The lungs are clear. There is no pleural effusion or pneumothorax. The cardiac silhouette is normal. Hyperinflated lungs are redemonstrated. Impression: Clear lungs. Electronically Signed by Wai Groves DO 05/15/2019 10:24 A
--- NOTE | 2019-05-15 10:53 | ECGEPIP ---
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
== END ==
LOC: M LAB 08:05
PROVIDERS: ATTEND Orthopaedic Surgery
DX: M17.11 Unilateral primary osteoarthritis, right knee (principal)

== ENCOUNTER 2019-06-02 09:45 | Inpatient (IN) | payer MEDICARE ==
--- NOTE | 2019-05-29 16:44 | HPE ---
DATE OF ADMISSION: 06/02/2019 CHIEF COMPLAINT: Right knee pain. HISTORY: This a pleasant 73-year-old male with progressively worsening right knee pain and stiffness. He has failed to improve with conservative treatment. He has elected for surgery for his continued symptoms. He has pain with weightbearing activities and his activities of daily living. X-rays of his knee are notable for advanced osteoarthritis of the right knee joint. He has consented for a right total knee arthroplasty by Dr. Cj Rob. Medical optimization was performed by Dr. Reeder's office. ALLERGIES: None. CURRENT MEDICATIONS: - losartan PAST MEDICAL HISTORY: Hypertension. PAST SURGICAL HISTORY: 1. Cataract removal. 2. Left total knee arthroplasty. 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 Does not smoke. Occasionally drinks alcohol. FAMILY HISTORY: Noncontributory. REVIEW OF SYSTEMS: This patient denies chest pain, heart palpitations, cough, wheezing, difficulty breathing and shortness of breath. He denies abdominal pain, nausea, vomiting, diarrhea or constipation. He denies recent upper respiratory infection or urinary tract infection symptoms. He does complain of persistent pain in his right knee. PHYSICAL EXAMINATION: GENERAL: He is well-nourished, well-developed, in no acute distress, alert male patient. He ambulates with a moderate limp favoring his right lower extremity. He is not using assistive devices. VITAL SIGNS: He is 65 inches tall, weighs 145 pounds, temperature of 97.7, blood pressure 115/79, respirations of 16, heart rate 82. Neck was supple without adenopathy or jugular venous distension. Lungs were clear to auscultation without rales or wheeze. HEART: Regular rate and rhythm. ABDOMEN: Bowel sounds were present. EXTREMITIES: Examination of the knee revealed intact skin. The patient had decreased range of motion due to pain and stiffness. The limb is neurovascularly intact. LABORATORY DATA: EKG showed sinus rhythm at 76 beats per minute. Chest x-ray Showed no acute cardiopulmonary disease processes. ProTime was 13.9, INR 1.10. Glucose 106, BUN 18, creatinine 1.01, sodium 140, potassium 4.1. Complete blood count (CBC) showed MCV of 96.8, otherwise within normal limits with a sedimentation rate of 10. IMPRESSION: Symptomatic osteoarthritis of the right knee joint. PLAN: Consented for a right total knee arthroplasty by Dr. Cj Rob.
[~2019-06-02] VITALS: Ht 170.2 cm; Wt 65.8 kg
[~2019-06-02 09:45] MED LIST changes: +ACETAMINOPHEN 500 MG TAB PO ONE; +LR 1,000 ML IV ONE; +ceFAZolin SOD 2 GM in IV 1 EA IV ONE
[2019-06-12] MEDS ORDERED: ceFAZolin SOD 2 GM in IV 1 EA IV ONE (06:00)
[2019-06-12] MEDS ORDERED: ACETAMINOPHEN 500 MG TAB PO ONE (06:00)
[2019-06-12] MEDS ORDERED: LR 1,000 ML IV ONE (07:00)
[2019-06-12] MEDS ORDERED: TRANEXAMIC ACID 100 MG/ML 10ML VIAL As Ordered ONE (10:35)
[2019-06-12] MEDS ORDERED: BUPIVACAINE HCL 0.25% 10 ML VIAL As Ordered ONE ×2 (10:36→10:37)
[2019-06-12] MEDS ORDERED: ceFAZolin 1GM INJ (J0690 PER 500MG) As Ordered ONE ×2 (10:36→10:46)
[2019-06-12] MEDS ORDERED: BUPIVACAINE LIPOSOME/PF 1.3% 20ML VIAL (13.3MG/ML)(EXPAREL)(C9290 PER1MG) As Ordered ONE (10:36)
[2019-06-12] MEDS ORDERED: EPINEPHrine INJ 1 MG/ML 1ML AMP As Ordered ONE (10:36)
[2019-06-12] MEDS ORDERED: MIDAZOLAM INJ 2 MG/2 ML VIAL (J2250) As Ordered ONE ×2 (11:10→12:16)
[2019-06-12] MEDS ORDERED: fentaNYL 100 MCG/2 ML INJECTION (J3010) As Ordered ONE (11:10)
[2019-06-12] MEDS: MIDAZOLAM INJ 2 MG/2 ML VIAL (J2250) IV PRN ×2 (11:28→11:32)
[2019-06-12] MEDS ORDERED: fentaNYL 100 MCG/2 ML INJECTION (J3010) IV PRN ×2 (12:15→14:45)
[2019-06-12] MEDS ORDERED: LIDOCAINE 2% INJ 100 MG/5 ML SDV (FOR ANES.) As Ordered ONE (12:16)
[2019-06-12] MEDS ORDERED: PROPOFOL 200 MG/20 ML VIAL As Ordered ONE ×2 (12:16→13:59)
[2019-06-12] MEDS ORDERED: ePHEDrine SULFATE 25 MG/5 ML(5MG/ML) SYRINGE As Ordered ONE (13:59)
[2019-06-12] MEDS ORDERED: ONDANSETRON 4MG/2ML VIAL (J2405) IV PRN (14:45)
[2019-06-12] MEDS ORDERED: LR 1,000 ML IV SCH (14:45)
[2019-06-12] MEDS ORDERED: dexameTHASONE 10 MG/1 ML VIAL PRES.FREE (J1100) ONE (15:15)
[2019-06-12] MEDS ORDERED: ROPIvacaine 0.5% 30 ML INJECTION (J2795 PER 1MG) ONE (15:15)
[2019-06-12] MEDS ORDERED: LIDOCAINE 1% MDV 20ML VIAL ONE (15:15)
[2019-06-12] MEDS ORDERED: ACETAMINOPHEN TAB 650MG DOSE (2X325MG) PO PRN (15:31)
[2019-06-12] MEDS ORDERED: FLEET ENEMA PR PRN (15:31)
[2019-06-12] MEDS: LR 1,000 ML IV SCH (15:31)
[2019-06-12] MEDS ORDERED: HYDROMORPHONE HCL 0.5 MG/ 0.5 ML SYRINGE (J1170 PER 1) IV PRN ×2 (15:31)
[2019-06-12 16:00] VITALS: BP 132/69
--- NOTE | 2019-06-12 16:17 | REP ---
Right knee: Two views. History: Postop eval. Findings: The patient is status post right knee arthroplasty. Anterior skin tani are seen. Arthroplasty components are well aligned with respect to each other and their [place] bones. There is suprapatellar bursal air and some soft tissue emphysema and swelling is seen. Impression: Right knee arthroplasty. Electronically Signed by Remi Petty MD 06/12/2019 05:03 P
[2019-06-12 16:30] VITALS: BP 142/71
--- NOTE | 2019-06-12 16:53 | CR.PDOC ---
General Date of Consultation: Jun 12, 2019 Consultation REASON FOR CONSULTATION/CHIEF COMPLAINT: medical co-management HISTORY OF PRESENT ILLNESS: 73 yo male POD #0 for right total knee arthroplasty for symptomatic right knee osteoarthritis, with PMHx of HTN treated with losartan. Patient seen and examined at bedside. In good spirits, no medical complaints. Denies chest pain, shortness of breath, abdominal pain, N/V/D. ALLERGIES: Please see below. HOME MEDICATIONS: Please see below. PAST MEDICAL HISTORY: HTN PAST SURGICAL HISTORY: Cataracts Left TKA REVIEW OF SYSTEMS: As per HPI. PHYSICAL EXAMINATION: VITAL SIGNS: Please see below. GENERAL APPEARANCE: NAD HEENT: NC/AT, EOMI RESPIRATORY: CTA B/L CARDIOVASCULAR: +S1S2, RRR ABDOMEN: soft, NT, +BS EXTREMITIES: no edema, bandages right knee NEUROLOGICAL: no gross focal deficits, sensation intact throughout PSYCHIATRIC: AAOx3 LABORATORY DATA: Please see below. ASSESSMENT/PLAN: 73 yo male POD #0 for right total knee arthroplasty for symptomatic osteoarthritis, PMHx of HTN. #symptomatic osteoarthritis - right knee - POD #0 right TKA - follow as per primary team - ortho #HTN - hold losartan #DVT prophylaxis - as per ortho Dispo: monitor blood pressure, further direction as per ortho Vital Signs/I&O Vital Signs Date Time Temp Pulse Resp B/P (MAP) Pulse Ox O2 Delivery O2 Flow Rate FiO2 06/12/19 14:50 79 18 102/58 (73) 98 Room Air 06/12/19 14:20 98 06/12/19 12:25 3 Allergies Coded Allergies: No Known Allergies (Unverified , 05/19/19) Home Medications Scheduled Aspirin (Aspir 81) 81 Mg Tablet., 81 MG PO QHS, #30 (Reported) Glucosamine/Chondr Bahena A Sod (Osteo Bi-Flex Caplet) 1 Each Tablet, 1 TAB PO DAILY, (Reported) Losartan Potassium (Losartan Potassium) 50 Mg Tab, 50 MG PO QHS, (Reported) NIKKY DE LA ROSA MD Jun 12, 2019 15:09
[2019-06-12 17:30] VITALS: BP 138/70
[2019-06-12] MEDS: ceFAZolin SOD 2 GM in IV 1 EA IV SCH (18:57)
[2019-06-12 19:30] VITALS: BP 134/69
[2019-06-12 20:30] VITALS: BP 132/69
[2019-06-12] MEDS ORDERED: PERCOCET 5MG/325MG TAB PO PRN (20:30)
[2019-06-12] MEDS: PERCOCET 5MG/325MG TAB PO PRN (20:47)
[2019-06-12 21:30] VITALS: BP 109/66
[2019-06-13] MEDS: ceFAZolin SOD 2 GM in IV 1 EA IV SCH ×2 (00:49→06:29)
[2019-06-13 02:00] VITALS: BP 102/58
[2019-06-13] MEDS: LR 1,000 ML IV SCH (04:01)
[2019-06-13 06:00] VITALS: BP 103/58
[2019-06-13 06:28] LABS: HEMATOCRIT 36.3 % (42.0-52.0); HEMOGLOBIN 11.7 g/dl (13.5-17.5); MEAN CORPUSCULAR HEMOGLOBIN 31.5 pg (27.0-33.0); MEAN CORPUSCULAR HGB CONC 32.2 g/dl (32.0-36.5); MEAN CORPUSCULAR VOLUME 97.6 fl (80.0-96.0); PLATELET COUNT, AUTOMATED 159 10^3/uL (150-450); RED BLOOD COUNT 3.72 10^6/uL (4.30-6.10); WHITE BLOOD COUNT 9.6 10^3/uL (4.0-10.0)
[2019-06-13] MEDS: PERCOCET 5MG/325MG TAB PO PRN ×2 (06:29→15:24)
[2019-06-13 06:39] LABS: INR 1.23; PROTHROMBIN TIME 15.2 SECONDS (11.8-14.0)
[2019-06-13 06:55] LABS: BLOOD UREA NITROGEN 21 MG/DL (7-18); CALCIUM LEVEL 8.4 MG/DL (8.8-10.2); CARBON DIOXIDE LEVEL 28 MEQ/L (21-32); CHLORIDE LEVEL 106 MEQ/L (98-107); CREATININE FOR GFR 0.96 MG/DL (0.70-1.30); GLOMERULAR FILTRATION RATE > 60.0 (>42); GLUCOSE, FASTING 118 MG/DL (70-100); POTASSIUM SERUM 4.1 MEQ/L (3.5-5.1); SODIUM LEVEL 140 MEQ/L (136-145)
[2019-06-13] MEDS ORDERED: PERC5TAB12 PO (07:01)
[2019-06-13] MEDS ORDERED: XARE10TA PO (07:01)
--- NOTE | 2019-06-13 08:40 | RO ---
DATE OF PROCEDURE: 06/12/2019 PREOPERATIVE DIAGNOSIS: Right knee degenerative arthritis. POSTOPERATIVE DIAGNOSIS: Right knee degenerative arthritis. PROCEDURE: Right total knee arthroplasty using a size 5 cruciate retaining Attune femoral component with a size 5 tibial tray and a 6 mm rotating platform polyethylene insert and a 35 mm polyethylene button. All components were cemented. Prosthesis made by [employer]. SURGEON: Kassi Otoole MD VENETIAN [employer] W[employer]ER: MARVEL Perez ANESTHESIA: Spinal with right femoral nerve block. COMPLICATIONS: None. ESTIMATED BLOOD LOSS: 20 mL. SPECIMEN: Joint surface. DESCRIPTION OF PROCEDURE: Antibiotics were given intravenously preoperatively and then a successful right femoral nerve block and then spinal anesthetic was induced. Tourniquet placed on right upper thigh and not inflated. Right lower extremity was carefully prepped and draped in the usual sterile fashion. The leg elevated, and after appropriate time-out the tourniquet was inflated. A longitudinal incision was made for a medial parapatellar approach to the knee. Bovie cautery was used to coagulate the crossing vessels. Subperiosteal dissection around the proximal, medial and lateral tibia plateau was performed. The patella was everted and the knee flexed. Anterior cruciate ligament (ACL) debrided. Drill placed down the center of the femoral canal, followed by the intramedullary lynda and the distal femoral cutting jig set at 5 degree valgus cut at 9 mm resection level for a right knee. Block was pinned in position. Distal femoral cut performed. AP sizing jig measured for a size 5. 3 degrees of external rotation dialed in. Pins were placed. 4-in-1 block applied. Anterior, posterior chamfer cuts were performed. Then, the sulcus cut was performed using the jig. We then exposed the proximal tibia. Used the extramedullary alignment jig to estimate being parallel to the mechanical axis, referencing off the medial tibial condyle a 4 mm resection level. The block was pinned into position. Secondary check with the extramedullary lynda confirmed we appeared to be parallel to the mechanical axis. The proximal tibial osteotomy thus performed. Lamina account processor was placed medially and we performed a completion lateral meniscectomy with debridement of the posterior and lateral osteophytes. We then placed the lamina account processor laterally and performed a completion medial meniscectomy and debridement of the posterior and medial osteophytes. The 6 mm spacer block fit the best with good symmetry in flexion extension. We then exposed the proximal tibia, sized for a #5 tibial tray, which was pinned into position, followed by the reamer and broach. Then, the trial polyethylene placed. The trial femoral component was placed. We brought the knee into extension. Everted the patella. Performed a patellar osteotomy and sized for a 35 button. Lug holes drilled and the trial placed. Patellofemoral tracking was anatomic. We thus drilled the lug holes for the femur, then removed all the trial components and placed Exparel in the subperiosteal tissues around the distal femur and the proximal tibia, and then my communications assistant, Mr. Beth Eubanks, mixed the cement on the back table as I prepared the bony surfaces for cementing with a copious amount of pulsatile lavage irrigant solution. Mr. Eubanks was also critical to the success of this difficult surgery by helping with appropriate soft retraction, helping manipulate the knee, helping to mix the cement, helping to close the wound, amongst many other tasks to allow me to perform the operation smoothly, efficiently and safely. We then cemented the tibial tray. Removed excess cement and placed the polyethylene, then cemented the femoral component and removed excess cement. Brought the knee into extension. Everted the patellar and cemented the patellar button into position and held it with a clamp, removed excess cement. Held the knee in full extension as the cement hardened. As we were doing so, we copiously pulsatile lavage irrigated out the knee joint as we did several times throughout the operation. We then instilled tranexamic acid into the knee joint and then began closing the apex, the arthrotomy with two #1 PDS sutures. Medial parapatellar area was closed with a #1 PDS suture. We then closed the capsule with a running double armed #1 Stratafix, then released the tourniquet. We then copiously pulsatile lavage irrigated out that layer, then closed deep subdermal tissues with interrupted #2-0 PDS suture. Skin was closed with tani covered by Optifoam dry sterile bulky dressing. He was then transferred to the recovery room in stable condition. There were no intraoperative complications.
[2019-06-13] MEDS ORDERED: MOM 30ML SUSPENSION UDC PO SCH (09:00)
[2019-06-13] MEDS ORDERED: MIRALAX *UNIT DOSE* 17GM PACKET PO SCH (09:00)
[2019-06-13 10:00] VITALS: BP 104/59
[2019-06-13 14:00] VITALS: BP 125/61
[2019-06-13] MEDS ORDERED: RIVAROXABAN 10 MG TAB (XARELTO) PO SCH (18:00)
--- NOTE | 2019-06-15 20:35 | DSES ---
DATE OF ADMISSION: 06/12/2019 DATE OF DISCHARGE: 06/13/2019 ADMISSION DIAGNOSIS: Right knee degenerative osteoarthritis. OTHER DIAGNOSIS: Hypertension. DISCHARGE DIAGNOSIS: Right knee degenerative osteoarthritis. OPERATION PERFORMED: Right total knee arthroplasty. HISTORY: This is a 73-year-old male with progressively worsening right knee pain and stiffness. He has failed to improve with conservative management. He was admitted for elective knee replacement on his right side. HOSPITAL COURSE: The patient was admitted on the day of surgery and underwent a right total knee arthroplasty, which was uneventful. He did well in the postoperative period. His hospitalization course was without complications. He was up with physical therapy (PT) per their protocol. His pain was controlled on the day of discharge. He was doing well and weight bearing as tolerated on his right lower extremity and will use deep vein thrombosis (DVT) prophylaxis per protocol and thromboembolic compression stockings (TEDS) for 30 days postoperatively for DVT prophylaxis. He will resume his preoperative medications and diet. He was given instructions, to include, but not limited to wound monitoring and activity limitations. He will use oral pain medications for pain control. He will followup in our office in 10 to 14 days for surgical followup. Please refer to the medical record for further details.
== END 2019-06-13 15:35 | disposition home or self-care (01) | DRG 470 ==
LOC: M OR 06-12 09:01 → M MS5PR 06-12 16:03 → UNDODISIN 06-13 13:35
PROVIDERS: ADMIT Orthopaedic Surgery; ATTEND Orthopaedic Surgery
PROC: 0SRC0J9 Replacement of Right Knee Joint with Synthetic Substitute, Cemented, Open Approach (ICD-10-PCS; principal; 2019-06-12 11:30)
DX: M17.11 Unilateral primary osteoarthritis, right knee (principal); I10 Essential (primary) hypertension; Z98.41 Cataract extraction status, right eye; Z98.42 Cataract extraction status, left eye; Z96.652 Presence of left artificial knee joint; Z79.82 Long term (current) use of aspirin; Z79.899 Other long term (current) drug therapy